=== PATIENT | female | born 1985 | race Caucasian/White ===

== ENCOUNTER 2017-05-12 11:14 | Emergency (ER) | payer OTHER ==
[2017-05-12] MEDS ORDERED: Sodium Chloride 0.9% 1,000 ML IV STA (11:38)
--- NOTE | 2017-05-12 11:50 | ED PDOC ---
HPI: Psych/Substance Abuse Time Seen by Provider: 05/12/17 11:23 Chief Complaint (Nursing): Anxiety Chief Complaint (Provider): Substance abuse History Per: Patient History/Exam Limitations: no limitations Onset/Duration Of Symptoms: Days Current Symptoms Are (Timing): Still Present Modifying Factor(s): Narcotics Additional Complaint(s): The patient is a 31yo female, past medical history of PTSD and anxiety, presents to the ED for evaluation as she feels like she is withdrawing from heroin. Patient states her last heroin use was yesterday morning and she is concerned because she woke up this morning with vomit in her mouth; patient feels as if she had a "seizure" but denies any history of seizures. She denies any alcohol usage. Patient also reports she ran out of her Xanax 2 days ago as she recently lost her medicaid, she reports associated anxiety. Patient denies any suicidal ideation or homicidal ideation. Currently, she denies any other medical complaints. Past Medical History Reviewed: Historical Data, Nursing Documentation, Vital Signs - Medical History PMH: Anxiety, Post Traumatic Stress Disorder - Surgical History Surgical History: No Surg Hx - Family History Family History: States: Unknown Family Hx - Allergies Allergies/Adverse Reactions: Allergies Allergy/AdvReac Type Severity Reaction Status Date / Time No Known Allergies Allergy Verified 05/12/17 11:31 Review of Systems ROS Statement: Except As Marked, All Systems Reviewed And Found Negative Gastrointestinal: Positive for: Vomiting (patient woke up with vomit in her mouth) Psych: Positive for: Anxiety, Withdrawal. Negative for: Suicidal ideation, Other (homicidal ideation ) Physical Exam - Reviewed Nursing Documentation Reviewed: Yes Vital Signs Reviewed: Yes - Physical Exam Appears: Positive for: Well, Non-toxic, No Acute Distress Head Exam: Positive for: ATRAUMATIC, NORMAL INSPECTION, NORMOCEPHALIC Skin: Positive for: Normal Color, Warm Eye Exam: Positive for: Normal appearance Neck: Positive for: Normal, Supple Cardiovascular/Chest: Positive for: Regular Rate, Rhythm Respiratory: Positive for: Normal Breath Sounds. Negative for: Respiratory Distress Gastrointestinal/Abdominal: Positive for: Normal Exam, Soft. Negative for: Tenderness Neurologic/Psych: Positive for: Alert, Oriented (x 3) - Laboratory Results Result Diagrams: 05/12/17 11:55 05/12/17 11:55 Medical Decision Making Medical Decision Making: Time: 1140 Impression: Withdrawal, anxiety Plan: -- Labs -- IV NS 1000ml/hr -- Zofran 4mg IV -- Urinalysis -- Crisis evaluation Reassess Time: 1252 Catapres 0.1 mg PO ordered. Time: 1334 Patient seen and evaluated by crisis team and is cleared. Patient pending urinalysis and CT Head. Time: [address] Head and is requesting to go home. Scribe Attestation: Documented by Rosario Jansen acting as a scribe for Thea Green MD. Provider Attestation: All medical record entries made by the Scribe were at my direction and personally dictated by me. I have reviewed the chart and agree that the record accurately reflects my personal performance of the history, physical exam, medical decision making, and the department course for this patient. I have also personally directed, reviewed, and agree with the discharge instructions and disposition. Disposition - Clinical Impression Clinical Impression: Heroin abuse, Anxiety - Disposition Disposition: Routine/Home Disposition Time: 13:56 Condition: STABLE Additional Instructions: [facility] [place] [facility] Instructions: Narcotic Abuse (ED), Anxiety (ED) Forms: [employer] (Bengali)
[2017-05-12 12:05] LABS: BASO % 0.3 % (0.0-2.0); EOS # 0.1 K/uL (0.0-0.7); EOS % 1.1 % (0.0-4.0); HEMATOCRIT 41.8 % (34.0-47.0); LYMPH # 2.4 K/uL (1.0-4.3); LYMPH % 38.1 % (20.0-40.0); MEAN CELL VOLUME 87.4 fl (81.0-99.0); MEAN CORPUSCULAR HEMOGLOBIN 29.4 pg (27.0-31.0); MEAN CORPUSCULAR HGB CONC 33.7 g/dL (33.0-37.0); MEAN PLATELET VOLUME 7.5 fl (7.2-11.7); MONO # 0.4 K/uL (0.0-0.8); MONO % 5.8 % (0.0-10.0); NEUT # 3.5 K/uL (1.8-7.0); NEUT % 54.7 % (50.0-75.0); NRBC % 0.1 % (0.0-0.0); RED CELL DISTRIBUTION WIDTH 12.8 % (11.5-14.5); WHITE BLOOD COUNT 6.4 K/uL (4.8-10.8)
[2017-05-12 12:21] LABS: ALB/GLOB RATIO 1.1 (1.0-2.1); ALCOHOL SERUM < 10 mg/dl (0-10); ALKALINE PHOSPHATASE 91 U/L (38-126); ALT/SGPT 30 U/L (9-52); AST/SGOT 24 U/L (14-36); BILIRUBIN,TOTAL 0.7 mg/dl (0.2-1.3); BLOOD UREA NITROGEN 5 mg/dl (7-17); CALCIUM 9.7 mg/dL (8.4-10.2); CARBON DIOXIDE 25 mmol/L (22-30); CHLORIDE 105 mmol/L (98-107); GFR AFRICAN-AMERICAN > 60; GLUCOSE,RANDOM 99 mg/dL (65-105); POTASSIUM 4.3 MMOL/L (3.6-5.0); SODIUM 141 mmol/l (132-148); TOTAL PROTEIN 8.2 G/DL (6.3-8.2)
[2017-05-12 13:57] LABS: RBC URINE 1 /hpf (0-3); URINE BACTERIA OCC (<OCC); URINE BILIRUBIN NEGATIVE (NEGATIVE); URINE BLOOD NEGATIVE (NEGATIVE); URINE COLOR YELLOW (YELLOW); URINE GLUCOSE (UA) NEG (Normal); URINE KETONE NEGATIVE (NEGATIVE); URINE LEUKOCYTE ESTERASE SMALL Leu/uL (Negative); URINE PROTEIN NEGATIVE (NEGATIVE); URINE UROBILINOGEN 0.2-1.0 mg/dL (0.2-1.0); WBC URINE 3 /hpf (0-5)
== END 2017-05-12 14:57 | disposition home or self-care (01) ==
LOC: H.ER 11:14
DX: F11.10 Opioid abuse, uncomplicated (principal); F43.10 Post-traumatic stress disorder, unspecified; F41.9 Anxiety disorder, unspecified
CPT/HCPCS: 80053; 80320; 80324; 80345; 80346; 80349; 80353; 80358; 80361; 81003; 83992; 85025; 96360; 99281; J2405; J7040